=== PATIENT | male | born 1965 ===

== ENCOUNTER 2017-08-24 06:23 | Day surgery (SDC) | payer BC ==
[2017-08-24 06:38] VITALS: BMI 26.1
[2017-08-24] MEDS ORDERED: Propofol 10 mg/ml Inj (20 ML) ONE (08:33)
[2017-08-24] MEDS ORDERED: Lactated Ringer's 1,000 ML IV ONE ×2 (08:41)
[2017-08-24] MEDS ORDERED: Lactated Ringer's 500 ML IV SCH (09:00)
--- NOTE | 2017-08-24 09:00 | CP.SDSHP ---
Same Day Surgery H & P - History Proposed Procedure: colonoscopy Pre-Op Diagnosis: screening - Allergies Allergies: Allergies No Known Allergies Allergy (Verified 08/24/17 06:35) - Physical Exam General Appearance: NAD Vital Signs: Vital Signs 08/24/17 06:38 Temperature 97 F L Pulse Rate 81 Respiratory 20 Rate Blood Pressure 126/78 O2 Sat by Pulse 98 Oximetry Mental Status: Alert & Oriented x3 Neuro: WNL Heart: WNL Lungs: WNL GI: WNL - {Optional Preform as Required} Abdomen: WNL - Impression Pt. Evaluated Today:Candidate for Anesthesia & Procedure: Yes - Date & Time Date: 08/24/17 Time: 09:00 Short Stay Discharge - Short Stay Discharge Admitting Diagnosis/Reason for Visit: SCREENING Disposition: HOME/ ROUTINE
[2017-08-24 09:25] VITALS: O2SAT 99
[2017-08-24 10:13] VITALS: BP 118/70; PULSE 68; RESP 12; TEMP 97
== END 2017-08-24 10:20 | disposition home or self-care (01) ==
LOC: C.ENDO 06:23
PROVIDERS: ATTEND Internal Medicine Gastroenterology
DX: K57.90 Diverticulosis of intestine, part unspecified, without perforation or abscess without bleeding (principal); K64.8 Other hemorrhoids
CPT/HCPCS: 45378; J2704; J3010; J7120